=== PATIENT | male | born 1980 | race Caucasian/White ===

== ENCOUNTER 2022-02-07 17:48 | Emergency (ER) | payer OTHER, SELFPAY ==
[2022-02-07 19:25] VITALS: BP 145/91; PULSE 83; RESP 19; TEMP 36.9; O2SAT 99; BMI 39.7
[2022-02-07 19:34] LABS: Adenovirus,PCR Not Detected (NotDetected); Bordetella Pertussis Not Detected (NotDetected); Chlamydophila Pneumoniae, PCR Not Detected (NotDetected); Coronavirus 19, PCR Not Detected (NotDetected); Coronavirus 229E Not Detected (NotDetected); Coronavirus NL63 Not Detected (NotDetected); Coronavirus OC43 Not Detected (NotDetected); Coronovirus HKU1,PCR Not Detected (NotDetected); Human Metapneumovirus Not Detected (NotDetected); Influenza A, PCR Not Detected (NotDetected); Influenza AH1, 2009 Not Detected (NotDetected); Influenza AH1, PCR Not Detected (NotDetected); Influenza AH3,PCR Not Detected (NotDetected); Influenza B, PCR Not Detected (NotDetected); Mycoplasma Pneumoniae, PCR Not Detected (NotDetected); Parainfluenza 1, PCR Not Detected (NotDetected); Parainfluenza 2, PCR Not Detected (NotDetected); Parainfluenza 3, PCR Not Detected (NotDetected); Parainfluenza 4, PCR Not Detected (NotDetected); Respiratory Syncytial Virus Not Detected (NotDetected); Rhinovirus/Enterovirus Not Detected (NotDetected)
--- NOTE | 2022-02-07 19:40 | HMH.EDUTC ---
[facility] [place] Disposition Clinical Impression: Bronchitis Sinusitis Qualifiers: Sinusitis location: unspecified location Chronicity: unspecified Qualified Code(s): J32.9 - Chronic sinusitis, unspecified Disposition: Home, Self-Care Condition on Discharge: Good Instructions: Sinusitis, DI for Sinusitis, DI for Cough -- Adult, Acute Bronchitis Additional Instructions: ? Start antibiotic today. Be sure to complete entire prescription even if feeling better ? Monitor temp. Tylenol every 4 hours as needed and / or ibuprofen every 6 hours as needed ( As long as your primary care physician has told you that it ok to take both. For fever/aches/pains ER if no less than 101 despite Tylenol or Motrin ? Humidifier/vaporizer or hot steamy shower ? Inhaler every 4-6 hours as needed like we discussed. If unsure how to use it, ask pharmacist to demonstrate how. Should help open airways and improve cough, wheezing, and shortness of breath *Tessalon Perles will not cause drowsiness but use at bedtime to help stop cough so that you may get some rest. *Start steroid today. Helps with inflammation therefore, cough and wheezing. Follow directions on the package. Reviewed side effects. Patient reports taking them before. Follow up IMMEDIATELY for new or worsening of symptoms OR no noticeable improvement over the next 48-72 hours. 911 immediately for any life threatening symptoms such as chest pain or difficulty breathing You were tested for today for COVID19 your test result should be back in the next 24-48 hours, you may check your results on the [facility] My Health P Make sure to take your Vitamins Vit. C Vit D and Zinc if you can take them Prescriptions: Albuterol Sulfate [Proventil-HFA 90mcg/puff Inh] 1 - 2 puffs IH Q6HP PRN #1 each PRN Reason: Shortness Of Breath Transmission Status: Pending to [facility] Benzonatate [Benzonatate 100mg cap] 100 mg PO Q8HP PRN #15 cap PRN Reason: Cough Transmission Status: Pending to [facility] methylPREDNISolone [Medrol 4mg tab] 4 mg PO DIRECTED #21 tab Transmission Status: Pending to [facility] Azithromycin [Z-Gerardo 250mg Tab] 250 mg PO DIRECTED #6 tab Transmission Status: Pending to [facility] Referrals: Mamadou Munguia MD [Primary Care Provider] - As needed Forms: Work/School Release Medical Decision Making - Shad Inquiry Pt receiving controlled substance: No Shad was queried for this patient: No Vital Signs: 02/07/22 19:25 Temperature 98.4 F Temperature Source Oral Pulse Rate [Left Brachial] 83 Respiratory Rate 19 Blood Pressure [Left Arm] 145/91 H Blood Pressure Mean [Left Arm] 109 Blood Pressure Source [Left Arm] Automatic Cuff Blood Pressure Position [Left Arm] Sitting 02 Sat by Pulse Oximetry 99 Oxygen Delivery Method Room Air - Lab Data Lab results reviewed: Yes: I reviewed the patient's lab results. Orders (Tests/Meds): ORDERS Category Date Time Status Full Resp Panel w/COVID ([facility]) Routine Lab 02/07/22 19:25 Received [facility] [place] HPI - General Stated complaint: sore throat,cough,SOA sonam, V/D Time Seen by Provider: 02/07/22 19:40 Mode of Arrival: Ambulatory Source of Information: Patient Limitations: No Limitations Description of Symptoms (Recalled from Triage Doc. by RN): PATIENT C/O SORE THROAT, CHEST DISCOMFORT FROM COUGHING, AND VOMITING X 3 DAYS HEENT Symptoms (Recalled from RN notes): Yes Resp Symptoms (Recalled from RN notes): Yes Skin Symptoms (Recalled from RN notes): No MS Symptoms (Recalled from RN notes): No Functional Status (Recalled from RN notes): WNL - History of Present Illness Provider Complaint: Patient states that he has been having sore scratchy throat from coughing, sinus congestion and pressure and cough States that he coughed so much yesterday he vomited and vomited x 1 today States that he thinks he may have a sinus infection and bronchitis so he came in to get [facility]
[2022-02-07 19:50] VITALS: BP 145/91; PULSE 83; RESP 19; TEMP 36.9; O2SAT 99
== END 2022-02-07 19:52 | disposition home or self-care (01) ==
PROVIDERS: Emergency Provider Nurse Practitioner; PCP Family Medicine
DX: J32.9 Chronic sinusitis, unspecified (principal); J02.9 Acute pharyngitis, unspecified; R11.10 Vomiting, unspecified; Z20.822 Contact with and (suspected) exposure to COVID-19; R51.9 Headache, unspecified; F17.210 Nicotine dependence, cigarettes, uncomplicated; Z79.52 Long term (current) use of systemic steroids; Z79.899 Other long term (current) drug therapy; Z88.6 Allergy status to analgesic agent
CPT/HCPCS: 87581; 87632; 87798; 99213; C9803; G0463; U0003; U0005

== ENCOUNTER 2022-02-28 19:08 | Emergency (ER) | payer OTHER, SELFPAY ==
[2022-02-28 19:33] LABS: Influenza A, PCR Not Detected (NotDetected); Influenza B, PCR Not Detected (NotDetected)
[2022-02-28 20:28] LABS: Coronavirus 19, PCR Detected (NotDetected)
[2022-02-28 20:47] VITALS: BP 138/89; PULSE 89; RESP 18; TEMP 37.3; O2SAT 93; BMI 37.7
--- NOTE | 2022-02-28 20:55 | XR_ITS ---
PROCEDURE INFORMATION: Exam: XR Chest Exam date and time: 02/28/2022 9:00 PM Age: 41 years old Clinical indication: Patient HX: Cough, covid symptoms TECHNIQUE: Imaging protocol: Radiologic exam of the chest. Views: 2 views. COMPARISON: No relevant prior studies available. FINDINGS: Lungs: Patchy scattered bilateral pulmonary opacities. Pleural spaces: Unremarkable. No pleural effusion. No pneumothorax. Heart/Mediastinum: Unremarkable. No cardiomegaly. Bones/joints: Unremarkable. IMPRESSION: Patchy scattered bilateral pulmonary opacities. This is compatible with COVID-19 infection in the appropriate clinical setting.
--- NOTE | 2022-02-28 23:27 | HMH.EDURI ---
ED Disposition Clinical Impression: COVID-19 Disposition: Home, Self-Care Condition on Discharge: Good Instructions: DI for COVID-19 (Suspected or Confirmed ) Additional Instructions: fluids and use meds as directed Prescriptions: Molnupiravir [Lagevrio (Eua)] 200 mg PO BID #40 cap Transmission Status: Pending to [facility] Referrals: Mamadou Munguia MD [Primary Care Provider] - - Critical Care Critical Care Time: No Attestation: On 02/28/22, the high probability of a clinically significant, sudden or life threatening deterioration of the following system(s) required my full and direct attention, intervention and personal management. The time I documented below is in addition to time spent performing reported procedures but includes the following listed in this critical care notation. Medical Decision Making - Medical Records Medical records reviewed: Yes: I reviewed the patient's medical records. - Shad Inquiry Pt receiving controlled substance: No Vital Signs: 02/28/22 20:47 Temperature 99.1 F Temperature Source Oral Pulse Rate [Apical] 89 Respiratory Rate 18 Blood Pressure [Right Arm] 138/89 Blood Pressure Mean [Right Arm] 105 Blood Pressure Source [Right Arm] Automatic Cuff Blood Pressure Position [Right Arm] Sitting 02 Sat by Pulse Oximetry 93 L Oxygen Delivery Method Room Air - Lab Data Lab results reviewed: Yes: I reviewed the patient's lab results. Lab Results 02/28/22 19:15: SARS-CoV-2 (PCR) Detected A, Influenza A Untype (PCR) Not detected, Influenza Type B (PCR) Not detected Orders (Tests/Meds): ED MEDICATIONS Discontinued Medications Generic Name Dose Route Start Last Admin Trade Name Kofi PRN Reason Stop Dose Admin Acetaminophen 1,000 mg 02/28/22 20:53 02/28/22 21:38 Acetaminophen 500mg Tab PO 02/28/22 20:54 1,000 mg ONCE ONE Administration - Radiology Data #1 Image(s): Chest Image Reviewed: Yes I have reviewed radiologist's interpretation Preliminary Findings: Abnormal (see chart ) Medical Decision Narrative: has covid-19 and possible benefit from paxlovid URI/Sore Throat HPI - General Chief Complaint: Upper Respiratory Infection Stated Complaint: exposed HINDS Body aches, fever Time Seen by Provider: 02/28/22 23:28 Mode of Arrival: Ambulatory Source of Information: Patient, Medical Record Limitations: No Limitations Description of Symptoms (Recalled from ER Triage Doc. by RN): pt c/o headache, body aches, fever since last night at 9pm. Pt requesting covid screening. Denies cough nausea vomiting or diarrhea - History of Present Illness HPI Narrative: pt with uri sx and cough with achey MD Complaint: cough, nasal congestion Onset (ago): day(s) Severity: moderate Able to tolerate fluids by mouth: Yes Associated symptoms: denies other symptoms Treatments prior to arrival: none - Related Data Home Medications Medication Instructions Recorded Confirmed Escitalopram Oxalate [Lexapro] 20 mg PO DAILY 02/07/22 02/07/22 Lisinopril/Hydrochlorothiazide 1 tab PO DAILY 02/07/22 02/07/22 [Lisinopril-Hctz 20-12.5 mg Tab*] Previous Rx's Medication Instructions Recorded Albuterol Sulfate [Proventil-HFA 1 - 2 puffs IH Q6HP PRN #1 each 02/07/22 90mcg/puff Inh] Molnupiravir [Lagevrio (Eua)] 200 mg PO BID #40 cap 02/28/22 Allergies Allergy/AdvReac Type Severity Reaction Status Date / Time NSAIDS (Non-Steroidal Allergy Verified 02/07/22 19:37 Anti-Inflamma H History - Hepatitis A Screen Attestation statement:: This patient has been screened for Hepatitis A risk factors. I have reviewed the patient's past medical history: Yes - Social History Smoking Status: Current every day smoker Tobacco Type: cigarettes # Packs/Day (cigarettes): 1 Alcohol Intake: never Occupational Status: other ROS Obtained: Yes All systems reviewed & no additional complaints - Constitutional Co
--- NOTE | 2022-02-28 23:34 | INFXCTL.NOTE ---
Called night-watch for dosing of Paxlovid. S/W
[2022-02-28 23:36] VITALS: BP 146/94; PULSE 88; RESP 19; TEMP 37; O2SAT 97
== END 2022-02-28 23:48 | disposition home or self-care (01) ==
PROVIDERS: Emergency Medicine; Emergency Provider Emergency Medicine; PCP Family Medicine
DX: U07.1 COVID-19 (principal)
CPT/HCPCS: 71046; 99283; C9803; U0003; U0005

== ENCOUNTER 2022-05-04 12:20 | Emergency (ER) | payer OTHER, SELFPAY ==
--- NOTE | 2022-05-04 12:47 | EXP.UTC ---
Discharge Plan Disposition Patient Disposition: Home, Self-Care Condition: Good Prescriptions Prescriptions: New azithromycin [Zithromax] 250 mg tablet 250 mg PO UD DOSE PK Qty: 6 0RF Rx Instructions: Take two (2) tablets today, then one (1) tablet days #2 thru #5 benzonatate [benzonatate] 100 mg capsule 100 mg PO TIDP PRN (Reason: Cough) Qty: 30 0RF ondansetron 4 mg Tablet,Disintegrating 4 mg PO Q8H PRN (Reason: Nausea) Qty: 20 0RF No Action molnupiravir 200 MG capsule 200 mg PO BID Qty: 40 0RF Rx Instructions: 4 200 mg caps po bid x 5 days lisinopril-hydrochlorothiazide 1 EACH tablet 1 tab PO DAILY escitalopram oxalate 20 MG tablet 20 mg PO DAILY albuterol sulfate 200 PUFF HFA aerosol inhaler 1 - 2 puffs IH Q6HP PRN (Reason: Shortness Of Breath) Qty: 1 0RF Referrals Follow up/Referrals: Mamadou Munguia MD [Primary Care Provider] - See instructions Activity Restrictions/Add. Instructions Additional Instructions/Restrictions: Drink plenty of fluids. Take tylenol or ibuprofen for pain or fever. Take the medications as directed. Follow up with your regular doctor. GO TO THE ER FOR ANY WORSENING SYMPTOMS Quarantine until you know the results of your covid-19 test. Notify your school or workplace of your results and follow their instructions regarding return to work/school. Clinical Impressions Clinical Impression: Viral syndrome Pharyngitis Qualifiers: Pharyngitis/tonsillitis etiology: unspecified etiology Qualified Code(s): J02.9 - Acute pharyngitis, unspecified Stand Alone Forms Stand Alone Forms: Work/School Release Instructions Patient Instructions: Strep Throat, Coronavirus Disease 2019, Preventing the Spread of Coronavirus Discharge Instructions Discharge ED Provider: Janak White [facility] General Stated complaint: fever, headache Time Seen by Provider: 05/04/22 12:47 History of Present Illness Provider Complaint: He states that for the past 2 days he has been feeling bad and running a fever at times. He has body aches, chills and a nonproductive cough. Related Data Home Medications Medication Instructions Recorded Confirmed escitalopram oxalate 20 mg tablet 20 mg PO DAILY Anxiety 02/07/22 02/28/22 lisinopril 20 1 tab PO DAILY Hypertension 02/07/22 02/28/22 mg-hydrochlorothiazide 12.5 mg tablet Previous Rx's Medication Instructions Recorded albuterol sulfate 90 mcg/actuation 1 - 2 puffs inhalation Q6HP PRN 02/07/22 aerosol inhaler Shortness Of Breath #1 ea molnupiravir 200 mg capsule (EUA) 200 mg PO BID #40 caps 02/28/22 azithromycin 250 mg tablet 250 mg PO UD DOSE PK #6 tabs 05/04/22 (Zithromax) benzonatate 100 mg capsule 100 mg PO TIDP PRN Cough #30 caps 05/04/22 ondansetron 4 mg disintegrating 4 mg PO Q8H PRN Nausea #20 tabs 05/04/22 tablet Allergies Allergy/AdvReac Type Severity Reaction Status Date / Time NSAIDS (Non-Steroidal Allergy Verified 05/04/22 12:59 Anti-Inflamma PFSH PFSH Social History Smoking Status: Current every day smoker tobacco type: cigarettes packs per day: 1 alcohol intake: never current occupational status: other Travel in the last 8 weeks: None ROS Obtained: Yes All systems reviewed & no additional complaints except as documented Constitutional Constitutional: Reports system reviewed and no additional complaints, except as documented, Denies chills and Denies fever(s) Eyes Eyes: Denies eye discharge ENT Ears, Nose, Mouth, and Throat: Denies dysphagia, Denies sore throat and Denies throat swelling Cardiovascular Cardiovascular: Denies chest pain and Denies dyspnea Respiratory Respiratory: Denies chest congestion, Denies cough and Denies dyspnea Gastrointestinal Gastrointestingal: Denies abdominal pain, constipation, diarrhea, dysphagia, nausea or vomiting Musculoskeletal Musculoskeletal: Denies
[2022-05-04 12:56] VITALS: BP 129/71; PULSE 81; RESP 18; TEMP 36.8; O2SAT 99; BMI 38.3
[2022-05-04 13:40] LABS: UTC Strep Screen (Rapid) Negative (Negative)
[2022-05-04 14:05] VITALS: BP 139/71; PULSE 81; RESP 18; TEMP 36.8
== END 2022-05-04 14:06 | disposition home or self-care (01) ==
PROVIDERS: Emergency Provider Nurse Practitioner Family; PCP Family Medicine
DX: B34.9 Viral infection, unspecified (principal)
CPT/HCPCS: 87880; 99212; C9803; G0463; U0003; U0005

== ENCOUNTER 2023-10-07 20:33 | Emergency (ER) | payer OTHER, SELFPAY ==
[2023-10-07 20:34] VITALS: BP 157/84; PULSE 82; RESP 18; TEMP 36.6; O2SAT 98; BMI 39.1
--- NOTE | 2023-10-07 20:46 | PC.NURSE ---
in room talking with patient at this time.
--- NOTE | 2023-10-07 20:47 | XR_ITS ---
PROCEDURE INFORMATION: Exam: XR Right Foot Exam date and time: 10/07/2023 8:48 PM Age: 42 years old Clinical indication: Injury or trauma; Other: Pain after kicking door; Sprain or strain; Foot; Right; Additional info: Foot injury and pain TECHNIQUE: Imaging protocol: Radiologic exam of the right foot. Views: 3 or more views. COMPARISON: No relevant prior studies available. FINDINGS: Bones/joints: Normal. Small inferior calcaneal spur. Soft tissues: Normal. IMPRESSION: No acute findings.
--- NOTE | 2023-10-07 20:51 | ED_ITS ---
Discharge Plan Disposition Patient Disposition: Home, Self-Care Chief Complaint: Extremity Injury, Lower Prescriptions Prescriptions: No Action molnupiravir 200 MG capsule 200 mg PO BID Qty: 40 0RF Rx Instructions: 4 200 mg caps po bid x 5 days azithromycin [Zithromax] 250 mg tablet 250 mg PO UD DOSE PK Qty: 6 0RF Rx Instructions: Take two (2) tablets today, then one (1) tablet days #2 thru #5 benzonatate [benzonatate] 100 mg capsule 100 mg PO TIDP PRN (Reason: Cough) Qty: 30 0RF ondansetron 4 mg Tablet,Disintegrating 4 mg PO Q8H PRN (Reason: Nausea) Qty: 20 0RF lisinopril-hydrochlorothiazide 1 EACH tablet 1 tab PO DAILY escitalopram oxalate 20 MG tablet 20 mg PO DAILY albuterol sulfate 200 PUFF HFA aerosol inhaler 1 - 2 puffs IH Q6HP PRN (Reason: Shortness Of Breath) Qty: 1 0RF Referrals Follow up/Referrals: Mamadou Munguia MD [Primary Care Provider] - See instructions Activity Restrictions/Add. Instructions Additional Instructions/Restrictions: Call your family doctor to establish care for this visit to the emergency department and schedule follow-up within 48 hours to ensure improvement. If you have any worsening of your condition or any other concerning signs or symptoms, return to the emergency department or your primary care doctor for further evaluation. Clinical Impressions Clinical Impression: Foot sprain Qualifiers: Encounter type: initial encounter Laterality: right Qualified Code(s): S93.601A - Unspecified sprain of right foot, initial encounter Discharge ED Provider: Bud Meier General Adult HPI General Chief complaint: Extremity Injury, Lower Stated complaint: [id number] injury to right foot Time Seen by Provider: 10/07/23 20:42 Mode of Arrival: Ambulatory Source of Information: Patient Limitations: No Limitations Description of Symptoms (Recalled from ER Triage Doc. 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 Swelling noted to the inner aspect of the sole of foot. Patient was wearing a boot that a coworker had and ambulated into the emergncy department without difficulty. History of Present Illness HPI narrative: Otherwise healthy 42-year-old male presenting with right foot pain. Patient states that he was carrying boxes, tried to open a door with his foot and felt a pop/had immediate pain. It is in his right foot, primarily in the middle of the plantar surface of his foot, but also radiates up through the middle of the dorsal aspect of his foot. States he is having trouble plantar flexing his toes secondary to pain and swelling. Initially numb, he has the feeling back now. Related Data Home Medications Medication Instructions Recorded Confirmed escitalopram oxalate 20 mg tablet 20 mg PO DAILY Anxiety 02/07/22 02/28/22 lisinopril 20 1 tab PO DAILY Hypertension 02/07/22 02/28/22 mg-hydrochlorothiazide 12.5 mg tablet Previous Rx's Medication Instructions Recorded albuterol sulfate 90 mcg/actuation 1 - 2 puffs inhalation Q6HP PRN 02/07/22 aerosol inhaler Shortness Of Breath #1 ea molnupiravir 200 mg capsule (EUA) 200 mg PO BID #40 caps 02/28/22 azithromycin 250 mg tablet 250 mg PO UD DOSE PK #6 tabs 05/04/22 (Zithromax) benzonatate 100 mg capsule 100 mg PO TIDP PRN Cough #30 caps 05/04/22 ondansetron 4 mg disintegrating 4 mg PO Q8H PRN Nausea #20 tabs 05/04/22 tablet Allergies Allergy/AdvReac Type Severity Reaction Status Date / Time NSAIDS (Non-Steroidal Allergy Verified 05/04/22 12:59 Anti-Inflamma [facility] Disclaimer: The information contained in this section may have been updated after the patient was seen, as this information can be updated by other users. Social History Smoking Status: Current every day smoker tobacco type: cigarettes packs per day: 1 alcohol intake: never current occupational status: other Travel in the last 8 weeks: None ROS Obtained: Yes All systems reviewed & no additional complaints except as documented Physical Exam General General appearance: alert and in no apparent distress Head Head exam: atraumatic and normocephalic Eye Eye exam: Present normal appearance, PERRL and EOMI ENT ENT exam: Present mucous membranes moist Neck Neck exam: Present normal inspection, full ROM and trachea midline Respiratory Respiratory exam: Absent respiratory distress, wheezes, stridor, accessory muscle use or prolonged expiratory phase Cardiovascular Cardiovascular exam: Present normal rhythm Abdominal Exam Abdominal exam: Present soft; Absent distention, tenderness, guarding, rebound or rigidity Extremities Exam Extremities exam: Present other (Right foot with tenderness about medial aspect of arch as well as middle of the plantar surface of foot. No outward signs of injury, deformity, swelling. He also has tenderness about medial aspect of dorsal aspect of foot at TMT joints); Absent edema Neurological Exam Neurological exam: Present alert, oriented X3, CN II-XII intact and normal gait; Absent motor sensory deficit Skin Skin exam: Present warm and dry; Absent diaphoresis or erythema Medical Decision Making Medical Records Medical records reviewed: Yes I reviewed the patient's medical records. Shad Inquiry Pt receiving controlled substance: No Shad was queried for this patient: No Vital Signs: 10/07/23 20:34 Temperature 97.8 F Temperature Source Oral Pulse Rate [Left Radial] 82 Respiratory Rate 18 Blood Pressure [Right Arm] 157/84 H Blood Pressure Mean [Right Arm] 108 Blood Pressure Source [Right Arm] Arterial Line Blood Pressure Position [Right Arm] Sitting 02 Sat by Pulse Oximetry 98 Oxygen Delivery Method Room Air Orders (Tests/Meds): ED MEDICATIONS Discontinued Medications Generic Name Dose Route Start Last Admin Trade Name Freq PRN Reason Stop Dose Admin Acetaminophen 1,000 mg 10/07/23 20:51 10/07/23 20:54 Acetaminophen 500mg Tab PO 10/07/23 20:52 1,000 mg ONCE ONE Administration ORDERS Category Date Time Status Foot XR right minimum 3 views [XR foot RT min 3V] Stat Exams 10/07/23 20:47 Completed Medical Decision Narrative: Otherwise healthy 42-year-old male presenting with right foot pain. Patient states that he was carrying boxes, tried to open a door with his foot and felt a pop/had immediate pain. It is in his right foot, primarily in the middle of the plantar surface of his foot, but also radiates up through the middle of the dorsal aspect of his foot. States he is having trouble plantar flexing his toes secondary to pain and swelling. Initially numb, he has the feeling back now. History was obtained via conversation with patient. On arrival, patient hemodynamically stable, alert, oriented x4, appropriate, GCS 15, moving all extremities spontaneously, pupils equal and reactive to light. Full physical exam performed and significant for tenderness at middle aspect of foot on plantar surface without outward signs of injury or bruising or deformity. He also has tenderness at TMT's dorsal aspect of foot. Difficulty plantar flexing toes on right foot, able to dorsiflex without issue. Neurovascular intact Differential includes sprain, strain, fracture, dislocation, among others. Patient was given p.o. Tylenol for symptomatic management and correction of underlying abnormalities. Workup independently interpreted and significant for no acute fracture, bony abnormality, dislocation, or any other findings on x-ray foot. See radiology read for full review of final results. On reevaluation, patient resting comfortably in bed. Given patient presentation, workup, history, this most likely represents plantar fascia strain versus other foot sprain. Because patient at baseline without signs or symptoms of clinical decompensation, deemed appropriate for discharge. Results were relayed to patient who voiced understanding and were agreeable to outpatient management and follow up. At the time of discharge the patient was hemodynamically stable, tolerating PO, and mobilizing appropriately. Critical Care Critical Care Time Critical Care Time: No
[2023-10-07] MEDS: ACETAMINOPHEN 500MG TAB 1000 MG PO (20:54)
--- NOTE | 2023-10-07 20:57 | PC.NURSE ---
Patient Gone to XRay at this time.
--- NOTE | 2023-10-07 21:03 | PC.NURSE ---
patient back in room at this time.
[2023-10-07 21:59] VITALS: BP 152/78; PULSE 87; RESP 18; TEMP 36.7; O2SAT 98
== END 2023-10-07 21:59 | disposition home or self-care (01) ==
PROVIDERS: Emergency Provider Emergency Medicine; PCP Family Medicine
DX: S93.601A Unspecified sprain of right foot, initial encounter (principal); F17.210 Nicotine dependence, cigarettes, uncomplicated; W22.8XXA Striking against or struck by other objects, initial encounter
CPT/HCPCS: 73630; 99283

== ENCOUNTER 2024-08-30 18:15 | Emergency (ER) | payer OTHER, SELFPAY ==
[2024-08-30 18:40] VITALS: BP 164/91; PULSE 78; RESP 18; TEMP 36.9; O2SAT 96; BMI 45.9
--- NOTE | 2024-08-30 18:40 | ED_ITS ---
Discharge Plan Disposition Patient Disposition: Home, Self-Care Condition: Good Prescriptions Prescriptions: New benzonatate 100 mg capsule 100 mg PO TIDP PRN (Reason: Cough) Qty: 30 0RF ondansetron 4 mg Tablet,Disintegrating 4 mg PO Q8H PRN (Reason: Nausea) Qty: 12 0RF No Action lisinopril-hydrochlorothiazide 1 EACH tablet 1 tab PO DAILY escitalopram oxalate 20 MG tablet 20 mg PO DAILY Referrals Follow up/Referrals: Mamadou Munguia MD [Primary Care Provider] - See instructions Activity Restrictions/Add. Instructions Additional Instructions/Restrictions: Drink plenty of fluids. Take tylenol or ibuprofen for pain or fever. Take the medications as directed. Follow up with your regular doctor. GO TO THE ER FOR ANY WORSENING SYMPTOMS Clinical Impressions Clinical Impression: Acute viral syndrome Stand Alone Forms Stand Alone Forms: Work/School Release Instructions Patient Instructions: DI for Viral Syndrome, Ondansetron, Benzonatate Print Language Print Language: Telugu Discharge ED Provider: Janak Wihte [facility] General Stated complaint: body aches,congestion,weakness,nausea Time Seen by Provider: 08/30/24 18:40 History of Present Illness Provider Complaint: He states that for the past 1 day he has had low grade fever, body aches, chills, and he has felt bad. He had to leave his job early, so he came here to be checked out. Related Data Home Medications ?Medication ?Instructions ?Recorded ?Confirmed escitalopram oxalate 20 mg tablet 20 mg PO DAILY Anxiety 02/07/22 08/30/24 lisinopril 20 1 tab PO DAILY Hypertension 02/07/22 08/30/24 mg-hydrochlorothiazide 12.5 mg tablet Previous Rx's ?Medication ?Instructions ?Recorded benzonatate 100 mg capsule 100 mg PO TIDP PRN Cough #30 caps 08/30/24 ondansetron 4 mg disintegrating 4 mg PO Q8H PRN Nausea #12 tabs 08/30/24 tablet Allergies Allergy/AdvReac Type Severity Reaction Status Date / Time aspirin Allergy Unknown Verified 08/30/24 18:47 allergy reaction NSAIDS (Non-Steroidal Allergy Unknown Verified 08/30/24 18:47 Anti-Inflamma allergy reaction [facility] Disclaimer: The information contained in this section may have been updated after the patient was seen, as this information can be updated by other users. Social History Smoking Status: Current every day smoker tobacco type: cigarettes packs per day: 1 alcohol intake: never current occupational status: other Travel in the last 8 weeks: None Have you lived/traveled outside [place] in past 30 days?: No Contact w/someone who lives/traveled outside [place] past 30 days?: No Exposure to someone with infectious disease in past 14 days?: No Do you have a fever (greater than 100.4 F or 38 C)?: No Have you tested positive for COVID-19: No Exposed to someone with COVID-19 in past 14 days?: No Do you have a sore throat?: Yes Do you have a cough?: Yes Do you have any weakness?: No Do you have any diarrhea?: No Are you experiencing any unusual bleeding?: No Do you have any muscle aches/pain?: Yes Do you have any abdominal pain?: No Are you experiencing loss of taste or smell?: No ROS Obtained: Yes All systems reviewed & no additional complaints except as documented Constitutional Constitutional: Reports chills and Reports fever(s) Eyes Eyes: Denies eye discharge ENT Ears, Nose, Mouth, and Throat: Reports as per HPI Cardiovascular Cardiovascular: Denies chest pain Respiratory Respiratory: Denies chest congestion and Reports cough Gastrointestinal Gastrointestingal: Reports nausea; Denies abdominal pain, constipation, cramping, diarrhea or vomiting Musculoskeletal Musculoskeletal: Denies arthralgias Integumentary/Breasts Skin/Breast: Denies rash Neurologic Neurologic: Denies paresthesias Physical Exam General General appearance: alert and in no apparent distress Head Head exam: atraumatic, normocephalic and normal inspection Eye Eye exam: Present normal appearance, PERRL and EOMI ENT ENT exam: Present normal exam, normal oropharynx, mucous membranes moist, TM's normal bilaterally and normal external ear exam Neck Neck exam: Present normal inspection, full ROM and trachea midline; Absent me ningismus or lymphadenopathy Chest Chest inspection: Present normal inspection and symmetric chest wall rise; Absent tenderness Respiratory Respiratory exam: Present normal lung sounds bilaterally; Absent respiratory distress Cardiovascular Cardiovascular exam: Present regular rate and normal rhythm; Absent JVD Abdominal Exam Abdominal exam: Present soft and normal bowel sounds; Absent distention, ten derness or guarding Extremities Exam Extremities exam: Present normal inspection, full ROM and normal capillary refill; Absent calf tenderness Back Exam Back exam: Present normal inspection; Absent tenderness Neurological Exam Neurological exam: Present alert and oriented X3 Psychiatric Psychiatric exam: Present normal affect and normal mood Skin Skin exam: Present warm, dry, intact and normal color Lymphatic Lymphatic Findings: no adenopathy Medical Decision Making Medical Records Medical records reviewed: No I reviewed the patient's medical records. Screening: Per USPSTF and CDC recommendations, given the prevalence of disease in our region, it is our hospital?s policy to screen for HIV and viral Hepatitis for all patients aged 18 and over and those with ongoing risk factors. Shad Inquiry Pt receiving controlled substance: No Lab Data Lab results reviewed: Yes I reviewed the patient's lab results.
[2024-08-30 18:55] LABS: UTC Influenza A Antigen Negative (Negative); UTC Influenza B Antigen Negative (Negative)
[2024-08-30 19:31] VITALS: BP 164/91; PULSE 78; RESP 18; TEMP 36.9; O2SAT 96
[2024-08-30 19:49] LABS: Coronavirus 19, PCR Not Detected (NotDetected); Influenza A, PCR Not Detected (NotDetected); Influenza B, PCR Not Detected (NotDetected)
== END 2024-08-30 19:40 | disposition home or self-care (01) ==
PROVIDERS: Emergency Provider Nurse Practitioner Family; PCP Family Medicine
DX: B34.9 Viral infection, unspecified (principal); Z20.828 Contact with and (suspected) exposure to other viral communicable diseases
CPT/HCPCS: 87636; 87804; 99213; G0381

== ENCOUNTER 2025-04-23 10:11 | Outpatient (CLI) | payer OTHER, SELFPAY ==
[2025-04-23 16:39] LABS: Albumin Level 4.3 g/dl (3.5-5.0); Chloride 109 mmol/L (98-107); Sodium 140 mmol/L (136-145)
[2025-04-23 16:40] LABS: Potassium 3.8 mmoL/L (3.5-5.1)
[2025-04-23 16:42] LABS: Alanine Aminotransferase 27 U/L (12-78); Albumin/Globulin Ratio 1.6 (1.1-1.8); Anion Gap 10.8 mEq/L (5-15); Aspartate Amino Transferase 24 U/L (17-59); Blood Urea Nitrogen 7 mg/dl (9-20); Carbon Dioxide 24 mmol/L (22.0-30.0); Creatinine,Serum 0.70 mg/dl (0.66-1.25); Estimated Glomerular Filt Rate 123 ml/min (>60); GFR (African American) 149 ML/MIN (>60); Globulin 2.7 g/dL (1.3-3.2); Total Protein,Serum 7.0 g/dl (6.3-8.2)
[2025-04-23 16:43] LABS: Alkaline Phosphatase 83 U/L (38-126); Bilirubin,Total 0.8 mg/dl (0.2-1.3); Calcium 9.3 mg/dl (8.4-10.2); Cholesterol 139 mg/dl (140-200); Glucose 149 mg/dl (74-100); HDL Cholesterol 35 mg/dl (40-60); Triglycerides 175 mg/dl (30-150)
[2025-04-23 17:14] LABS: Thyroid Stimulating Hormone 0.87 uIU/mL (0.465-4.68)
[2025-04-23 17:33] LABS: Hepatitis C Ab Qual. W/ RFX NEGATIVE (Negative)
[2025-04-24 07:29] LABS: Hepatitis B Surface Antigen Negative (Negative)
== END 2025-04-23 23:59 ==
LOC: LAB.DROPOF 04-25 10:03
PROVIDERS: PCP Student in an Organized Health Care Education/Training Program; Visit Provider Student in an Organized Health Care Education/Training Program
DX: I10 Essential (primary) hypertension (principal); Z11.59 Encounter for screening for other viral diseases; Z11.4 Encounter for screening for human immunodeficiency virus [HIV]; Z13.6 Encounter for screening for cardiovascular disorders; Z13.228 Encounter for screening for other metabolic disorders; F17.200 Nicotine dependence, unspecified, uncomplicated
CPT/HCPCS: 80053; 80061; 84443; 86803; 87340; 87389